=== PATIENT | female | born 1975 | race Hispanic/Latino ===

== ENCOUNTER 2023-05-15 19:42 | Emergency (ER) | payer BC ==
[~2023-05-15] VITALS: Ht 162.6 cm; Wt 122.9 kg
[2023-05-15] MEDS ORDERED: FAMOTIDINE 20MG TAB PO ONE (22:00)
[2023-05-15] MEDS ORDERED: MORPHINE 4 MG SYG IVP ONE (22:00)
[2023-05-15] MEDS ORDERED: ONDANSETRON 4MG TABLET PO ONE (22:00)
[2023-05-15] MEDS ORDERED: METO-296 PO (23:56)
[2023-05-16 00:22] VITALS: BP 128/81
[2023-05-16] MEDS ORDERED: ONDANSETRON 4MG TABLET PO ONE (00:30)
[2023-05-16] MEDS ORDERED: MORPHINE 4 MG SYG IM ONE (00:30)
[2023-05-16] MEDS ORDERED: FAMOTIDINE 20MG TAB PO ONE (00:30)
== END 2023-05-16 00:31 | disposition home or self-care (01) ==
LOC: EDH 19:42
DX: S06.890A Other specified intracranial injury without loss of consciousness, initial encounter (principal); V89.2XXA Person injured in unspecified motor-vehicle accident, traffic, initial encounter; Y93.I9 Activity, other involving external motion; Y92.488 Other paved roadways as the place of occurrence of the external cause; Y99.8 Other external cause status
CPT/HCPCS: 99284; 70450; 71045; 72170; 72125; 96372; Q0162; J2270